=== PATIENT | male | born 1950 | race Caucasian/White ===

== ENCOUNTER 2018-01-06 09:45 | Emergency (ER) | payer MEDICARE, OTHER ==
[2018-01-06 09:52] VITALS: BP 144/77
[2018-01-06] MEDS ORDERED: CLINDAMYCIN HCL 150 MG CAPSULE PO ONE (10:14)
--- NOTE | 2018-01-06 10:20 | ER Document Report ---
ED General - General Chief Complaint: Fall Stated Complaint: FALL/LEFT ARM PAIN Time Seen by Provider: 01/06/18 10:08 Notes: 67-year-old male here with complaints of left elbow and arm redness and minimal pain that started several days ago after he sustained a fall (3 days ago) from a truck. He hit his head but did not have any loss of consciousness. He has not had any numbness tingling weakness vision change headaches. His primary concern is the arm redness. It is steadily and slowly spread up the arm and down the forearm. He has had some subjective fevers but unmeasured at home. No prior history of MRSA or cellulitis. - Related Data Allergies/Adverse Reactions: No Known Allergies Allergy (Verified 01/06/18 09:49) Past Medical History - Social History Smoking Status: Unknown if Ever Smoked Family History: Reviewed & Not Pertinent Review of Systems - Review of Systems Notes: See history of present illness for pertinent positive review of systems; otherwise all review of systems have been reviewed and are negative Physical Exam - Vital signs Vitals: Temp Pulse Resp BP Pulse Ox 98.4 F 68 16 144/77 H 99 01/06/18 09:51 01/06/18 09:51 01/06/18 09:51 01/06/18 09:51 01/06/18 09:51 - Notes Notes: PHYSICAL EXAMINATION: GENERAL: Well-appearing and in no acute distress. HEAD: Small 1 cm abrasion to the occiput, normocephalic. EYES: Pupils equal round and reactive to light, extraocular movements intact, sclera anicteric, conjunctiva are normal. ENT: nares patent, oropharynx clear without exudates. Moist mucous membranes. NECK: Normal range of motion, supple without lymphadenopathy LUNGS: CTAB and equal. No wheezes rales or rhonchi. HEART: Regular rate and rhythm without murmurs ABDOMEN: Soft, no tenderness. No facial grimacing/wincing upon palpation. No guarding, no rebound. EXTREMITIES: Normal range of motion, no pitting edema. No cyanosis. NEUROLOGICAL: Cranial nerves grossly intact. Normal sensory/motor exams. Finger to nose coordination intact. Alert and oriented 3. PSYCH: Normal mood, normal affect. SKIN: Warm, Dry, normal turgor, there is mild erythema (without induration fluctuance drainage) extending distally from the left elbow up to the mid forearm and proximally to just before the elbow; there is no increased pain with active or passive range of motion; there are several small abrasions at the left elbow which is likely the starting point of the cellulitis Course - Re-evaluation Re-evalutation: 01/06/18 10:20 MEDICAL DECISION MAKING: Concern for cellulitis without abscess or septic joint His neurological exam is normal and do not feel head CT imaging needed 3 days out Will give dose of clindamycin here and prescription for same Instructed follow-up PCP next day or few Patient understands and agrees to the plan of care - Vital Signs Vital signs: Temp Pulse Resp BP Pulse Ox 98.4 F 68 16 144/77 H 99 01/06/18 09:51 01/06/18 09:51 01/06/18 09:51 01/06/18 09:51 01/06/18 09:51 Discharge - Discharge Clinical Impression: Cellulitis Qualifiers: Site of cellulitis: extremity Site of cellulitis of extremity: upper extremity Laterality: left Qualified Code(s): L03.114 - Cellulitis of left upper limb Condition: Good Disposition: HOME, SELF-CARE Instructions: Cellulitis ([facility]) Additional Instructions: You were seen in the emergency department at [facility] for left arm cellulitis. Do not skip any doses of the antibiotics. Apply warm compresses to the area as this will speed up the healing process (in addition to taking the antibiotics). Use Tylenol or Motrin for pain. Please followup with your primary physician in the next few days for further management/ evaluation. Please return to the emergency department for worsening of symptoms or any symptom that you deem to be concerning or life-threatening. Thank you for allowing us to be part of your care. Prescriptions: Clindamycin HCl 300 mg PO TID 10 Days #30 capsule
== END 2018-01-06 10:27 | disposition home or self-care (01) ==
LOC: ER 09:45
DX: L03.114 Cellulitis of left upper limb (principal)
CPT/HCPCS: 99283; A9270